=== PATIENT | male | born 1960 | race Caucasian/White ===

== ENCOUNTER 2020-12-14 16:07 | Inpatient (IN) | payer OTHER, SELFPAY ==
[2020-12-14] MEDS ORDERED: Senokot S 8.6-50 MG TAB PO PRN (20:32)
[2020-12-14] MEDS ORDERED: Ondansetron ODT 4 MG TAB PO PRN (20:32)
[2020-12-14] MEDS ORDERED: Ondansetron PF 4 MG/2 ML Vial IVP PRN (20:32)
[2020-12-14] MEDS ORDERED: Calcium Carbonate 500 MG ChewTAB PO PRN (20:32)
[2020-12-14] MEDS ORDERED: Melatonin 3 MG TAB PO PRN (20:55)
[2020-12-14 21:38] LABS: Band 7 % (5-11); Hemoglobin 6.3 g/dL (14.0-18.0); Hypochromia SLIGHT = 6-15 cells (100X) (0-5/hpf); Lymphocytes 9 % (21-51); MDiff Complete? YES; Mean Corpuscular HGB CONC 33.9 g/dL (32.0-36.0); Mean Corpuscular Hemoglobin 33.2 pg (27.0-31.0); Mean Corpuscular Volume 98.1 fL (78.0-98.0); Mean Platelet Volume 7.2 fL (7.4-10.4); Monocytes 1 % (0-10); Neutrophil 83 % (42-75); Platelet Count 109 thou/uL (130-400); Platelet Morphology Comment Appears Decreased; RBC Distribution Width 17.9 % (11.5-14.5); Red Blood Cell (RBC) Count 1.91 mill/uL (4.70-6.10); White Blood Cell (WBC) Count 2.4 thou/uL (4.8-10.8)
[2020-12-14 21:45] LABS: ALT (SGPT) 139 U/L (8-55); AST (SGOT) 75 U/L (5-34); Albumin 3.9 g/dL (3.4-4.8); Alkaline Phosphatase 334 U/L (40-110); Anion Gap 14 mmol/L (10-20); BUN (Urea Nitrogen) 21 mg/dL (8.4-25.7); Bilirubin, Total 0.9 mg/dL (0.2-1.2); CK (CPK) 41 U/L (30-200); Calc. Creatinine Clearance 37 mL/min (70-130); Carbon Dioxide 24 mmol/L (23-31); Chloride 97 mmol/L (98-107); Globulin 2.9 g/dL (2.4-3.5); Glucose 124 mg/dL (80-115); Potassium 5.4 mmol/L (3.5-5.1); Protein, Total 6.8 g/dL (5.8-8.1); Sodium 130 mmol/L (136-145)
[2020-12-14 21:57] LABS: Calcium 12.1 mg/dL (7.8-10.44)
[2020-12-14] MEDS: Lactated Ringer's 1,000 ML IV SCH (22:10)
[2020-12-14 22:44] LABS: Reticulocyte Count 0.6 % (0.5-1.5)
[2020-12-15] MEDS: Acetaminophen 325 MG TAB PO PRN ×3 (00:02→21:17)
[2020-12-15 04:58] LABS: #Lymphocytes 0.3 thou/uL (1.20-3.40); #Monocytes 0.1 thou/uL (0.11-0.59); #Neutrophils 1.5 thou/uL (1.40-6.50); %Basophils 1.3 % (0.0-1.0); %Eosinophils 0.2 % (0.0-10.0); %Lymphocytes 13.8 % (21.0-51.0); %Monocytes 4.7 % (0.0-10.0); Hemoglobin 6.2 g/dL (14.0-18.0); Mean Corpuscular HGB CONC 35.3 g/dL (32.0-36.0); Mean Corpuscular Hemoglobin 33.8 pg (27.0-31.0); Mean Corpuscular Volume 95.8 fL (78.0-98.0); Platelet Count 102 thou/uL (130-400); RBC Distribution Width 17.9 % (11.5-14.5); Red Blood Cell (RBC) Count 1.84 mill/uL (4.70-6.10); White Blood Cell (WBC) Count 1.9 thou/uL (4.8-10.8)
[2020-12-15 05:20] LABS: Chloride 96 mmol/L (98-107); Potassium 5.4 mmol/L (3.5-5.1); Sodium 130 mmol/L (136-145)
[2020-12-15 05:23] LABS: Albumin 3.4 g/dL (3.4-4.8)
[2020-12-15 05:25] LABS: Calcium 11.2 mg/dL (7.8-10.44)
[2020-12-15 05:26] LABS: Globulin 2.6 g/dL (2.4-3.5); Glucose 127 mg/dL (80-115)
[2020-12-15 05:27] LABS: Carbon Dioxide 24 mmol/L (23-31)
[2020-12-15 05:28] LABS: Alkaline Phosphatase 286 U/L (40-110); Bilirubin, Total 0.9 mg/dL (0.2-1.2)
[2020-12-15 05:29] LABS: Calc. Creatinine Clearance 35 mL/min (70-130)
[2020-12-15 05:30] LABS: BUN (Urea Nitrogen) 22 mg/dL (8.4-25.7)
[2020-12-15 05:31] LABS: AST (SGOT) 59 U/L (5-34)
[2020-12-15 05:32] LABS: ALT (SGPT) 113 U/L (8-55)
[2020-12-15 05:36] LABS: Anion Gap 15 mmol/L (10-20)
[2020-12-15 06:31] LABS: Ferritin 2116.19 ng/mL (22-322)
[2020-12-15] MEDS: Lactated Ringer's 1,000 ML IV SCH ×2 (07:00→15:48)
[2020-12-15 07:36] LABS: Hemoglobin 6.2 g/dL (14.0-18.0)
[2020-12-15] MEDS ORDERED: Dexamethasone 4 MG TAB PO SCH (08:00)
[2020-12-15] MEDS ORDERED: FLU VACC QS2021-22(6MOS UP)/PF 60 MCG/0.5 ML SYRINGE IM ONE (09:00)
[2020-12-15] MEDS ORDERED: Enoxaparin Sodium 40 MG/0.4 ML SYRINGE SC SCH (09:00)
[2020-12-15] MEDS ORDERED: Enoxaparin Sodium 30 MG/0.3 ML SYRINGE SC SCH (10:30)
[2020-12-15 11:06] LABS: SARS-CoV-2 NAA Rapid Test Not Detected (NotDetected)
[2020-12-15 12:16] LABS: INR-International Normal Ratio 1.4; PTT 46.4 sec (22.9-36.1); Prothrombin Time 16.9 sec (12.0-14.7)
[2020-12-15 14:51] LABS: FSP-Qualitative ABNORMAL (Normal)
[2020-12-15 14:52] LABS: FSP-Semiquantitative >=40 & <80 mcg/mL (Less than 5)
[2020-12-15 14:54] LABS: Anion Gap 16 mmol/L (10-20); BUN (Urea Nitrogen) 27 mg/dL (8.4-25.7); Calc. Creatinine Clearance 34 mL/min (70-130); Calcium 11.2 mg/dL (7.8-10.44); Carbon Dioxide 21 mmol/L (23-31); Chloride 96 mmol/L (98-107); Glucose 134 mg/dL (80-115); Potassium 4.7 mmol/L (3.5-5.1); Sodium 128 mmol/L (136-145)
[2020-12-15 14:58] LABS: Fibrinogen 681 mg/dL (253-463)
[2020-12-15 15:11] LABS: Bilirubin Negative (Negative); Blood, Urine 2+ (Negative); Clarity Clear (Clear); Glucose, Urine (Dipstick) Normal (Negative); Ketone, Urine Negative (Negative); Leukocyte Negative Leu/uL (Negative); Nitrite Negative (Negative); Protein, Urine (Dipstick) 100 mg/dL (Neg-Trace); RBC/HPF 0-3 HPF (0-3); Specific Gravity, Urine 1.013 (1.002-1.036); Squamous Epithelial 0-3 HPF (0-3); Urobilinogen Normal mg/dL (Less than 2); WBC/HPF 0-3 HPF (0-3)
[2020-12-15 15:15] LABS: Bacteria/HPF 1+ HPF (None Seen)
[2020-12-15] MEDS: Azithromycin 500 MG in Sodium Chloride 0.9% 250 ML 250 ML IVPB SCH (15:40)
[2020-12-15 16:11] LABS: Factor VIII Test 375.1 % ACTIVE (56-157)
[2020-12-15] MEDS ORDERED: cefTRIAXone\\ROCEPHIN 1 GM in Sodium Chloride 0.9% 100 ML IVPB SCH (17:00)
[2020-12-15 17:37] LABS: Hemoglobin 6.6 g/dL (14.0-18.0); Mean Corpuscular Hemoglobin 33.2 pg (27.0-31.0); Mean Corpuscular Volume 97.5 fL (78.0-98.0); Mean Platelet Volume 7.6 fL (7.4-10.4); Platelet Count 117 thou/uL (130-400); RBC Distribution Width 18.1 % (11.5-14.5); White Blood Cell (WBC) Count 2.5 thou/uL (4.8-10.8)
[2020-12-15 17:50] LABS: ALT (SGPT) 117 U/L (8-55); AST (SGOT) 70 U/L (5-34); Albumin 3.7 g/dL (3.4-4.8); Alkaline Phosphatase 301 U/L (40-110); Bilirubin, Direct 0.7 mg/dL (0.1-0.3); Protein, Total 7.3 g/dL (5.8-8.1)
[2020-12-15] MEDS ORDERED: Dexamethasone 4 mg/ml Vial SLOW IVP SCH (18:00)
[2020-12-15 18:01] LABS: Band 41 % (5-11); Lymphocytes 13 % (21-51); MDiff Complete? YES; Monocytes 3 % (0-10); Neutrophil 41 % (42-75); Platelet Morphology Comment Appears Decreased; Polychromasia SLIGHT = 2-3 cells (100X) (0-2/hpf); Reactive Lymphocytes 1 % (0-10)
[2020-12-15 18:23] LABS: Complement-C4 54.5 mg/dL (15-53)
[2020-12-15 18:25] LABS: Sodium, Urine Less than 20 mmol/L (Not Available)
[2020-12-15 18:44] LABS: HBSAg Index 0.22 S/CO (0-0.99); Hep B Surf Ag Non-Reactive S/CO (NonReactive)
[2020-12-15 18:45] LABS: Hep A IgM AB Non-Reactive (NonReactive); Hep A IgM S/CO 0.07 S/CO (0-0.79); Hep C IgG Ab Non-Reactive (NonReactive); Hep C Index 0.02 S/CO (0-0.79)
[2020-12-15 18:46] LABS: HBCM Index 0.05 S/CO (0-0.79); Hepatitis B Core IgM Abs Non-Reactive (NonReactive)
[2020-12-15 18:53] LABS: Protein, Urine Random Quant 466 mg/dL (1-14)
[2020-12-15] MEDS ORDERED: Piperacillin/Tazobactam 3.375 GM in Sodium Chloride 0.9% 100 ML IVPB SCH (20:00)
[2020-12-15 20:03] LABS: SARS-CoV-2 IgG Ab Non-Reactive (NonReactive)
[2020-12-15 20:16] LABS: SARS-CoV-2 IgG Index 0.02 S/CO (< 1.40)
[2020-12-16] MEDS: Lactated Ringer's 1,000 ML IV SCH (01:00)
[2020-12-16] MEDS ORDERED: Piperacillin/Tazobactam 3.375 GM in Sodium Chloride 0.9% 100 ML IVPB SCH (04:00)
[2020-12-16] MEDS ORDERED: Sodium Bicarbonate 150 MEQ in Dextrose 5% in Water 1,000 ML IV SCH (05:45)
[2020-12-16] MEDS ORDERED: Furosemide 40 MG/4 ML VIAL SLOW IVP SCH (06:00)
[2020-12-16 06:47] LABS: #Lymphocytes 0.3 thou/uL (1.20-3.40); #Monocytes 0.1 thou/uL (0.11-0.59); #Neutrophils 1.6 thou/uL (1.40-6.50); %Basophils 0.4 % (0.0-1.0); %Eosinophils 0.3 % (0.0-10.0); %Lymphocytes 13.5 % (21.0-51.0); %Monocytes 5.2 % (0.0-10.0); %Neutrophils 80.7 % (42.0-75.0); Hemoglobin 7.1 g/dL (14.0-18.0); Mean Corpuscular HGB CONC 33.1 g/dL (32.0-36.0); Mean Corpuscular Hemoglobin 31.9 pg (27.0-31.0); Mean Corpuscular Volume 96.5 fL (78.0-98.0); Mean Platelet Volume 7.6 fL (7.4-10.4); Platelet Count 95 thou/uL (130-400); RBC Distribution Width 18.2 % (11.5-14.5); Red Blood Cell (RBC) Count 2.23 mill/uL (4.70-6.10); White Blood Cell (WBC) Count 1.9 thou/uL (4.8-10.8)
[2020-12-16 07:20] LABS: Albumin 3.5 g/dL (3.4-4.8)
[2020-12-16 07:22] LABS: Chloride 100 mmol/L (98-107); Potassium 5.2 mmol/L (3.5-5.1); Sodium 134 mmol/L (136-145)
[2020-12-16 07:23] LABS: Glucose 171 mg/dL (80-115); Protein, Total 6.5 g/dL (5.8-8.1)
[2020-12-16 07:24] LABS: Carbon Dioxide 21 mmol/L (23-31)
[2020-12-16 07:25] LABS: Bilirubin, Total 1.2 mg/dL (0.2-1.2)
[2020-12-16 07:26] LABS: Alkaline Phosphatase 326 U/L (40-110); Calc. Creatinine Clearance 36 mL/min (70-130)
[2020-12-16 07:27] LABS: BUN (Urea Nitrogen) 31 mg/dL (8.4-25.7)
[2020-12-16 07:28] LABS: AST (SGOT) 90 U/L (5-34)
[2020-12-16 07:29] LABS: ALT (SGPT) 119 U/L (8-55)
[2020-12-16 07:34] LABS: Anion Gap 18 mmol/L (10-20)
[2020-12-16 07:34] LABS: Hemoglobin 6.7 g/dL (14.0-18.0)
[2020-12-16 07:35] LABS: Reticulocyte Count 0.4 % (0.5-1.5)
[2020-12-16 07:46] LABS: INR-International Normal Ratio 1.4; PTT 44.4 sec (22.9-36.1); Prothrombin Time 16.9 sec (12.0-14.7)
[2020-12-16] MEDS ORDERED: Lidocaine 1% PF 5 ML VIAL ONE (08:47)
[2020-12-16] MEDS ORDERED: PROPOFOL 200 MG/20 ML VIAL ONE (08:47)
[2020-12-16] MEDS ORDERED: Promethazine HCl 25 MG/ML VIAL IVPB PRN (09:05)
[2020-12-16] MEDS ORDERED: Ondansetron HCl/PF 4 MG/2 ML Vial IVP PRN (09:05)
[2020-12-16] MEDS ORDERED: Promethazine HCl 25 MG/ML VIAL IM PRN (09:05)
[2020-12-16] MEDS: Enoxaparin Sodium 30 MG/0.3 ML SYRINGE SC SCH (10:21)
[2020-12-16] MEDS ORDERED: cefTRIAXone Sodium 2 MG in Syringe 0 ML IVPB SCH (10:30)
[2020-12-16 11:16] LABS: HIV (1/2) Antibody/Antigen Non-Reactive (NonReactive); HIV 1/2 INDEX 0.06 S/CO (<1.00)
[2020-12-16] MEDS: cefTRIAXone\\ROCEPHIN 2 GM in Sodium Chloride 0.9% 100 ML IVPB SCH (15:34)
[2020-12-16] MEDS: Azithromycin 500 MG in Sodium Chloride 0.9% 250 ML 250 ML IVPB SCH (15:35)
[2020-12-16 16:07] LABS: T4 5.8 ug/dL (4.87-11.72); Thyroid Stimulating Hormone 0.9819 uIU/mL (0.35-4.94)
[2020-12-16] MEDS: Pantoprazole 40 MG VIAL IVP SCH (16:47)
[2020-12-16 19:23] LABS: Anion Gap 17 mmol/L (10-20); BUN (Urea Nitrogen) 42 mg/dL (8.4-25.7); Calc. Creatinine Clearance 36 mL/min (70-130); Calcium 10.4 mg/dL (7.8-10.44); Carbon Dioxide 21 mmol/L (23-31); Chloride 100 mmol/L (98-107); Glucose 142 mg/dL (80-115); Potassium 4.5 mmol/L (3.5-5.1); Sodium 133 mmol/L (136-145)
[2020-12-16 19:37] LABS: A/G Ratio 0.8 (0.7-1.7); Albumin 2.8 g/dL (2.9-4.4); Alpha 1 0.5 g/dL (0.0-0.4); Alpha 2 1.3 g/dL (0.4-1.0); Beta 0.9 g/dL (0.7-1.3); Globulin, Total 3.7 g/dL (2.2-3.9); M-Spike Note: g/dL (Not Observed)
[2020-12-17 01:34] LABS: Platelet Count 76 thou/uL (130-400)
[2020-12-17 07:54] LABS: 24 Hr Creatinine 1748.24 mg/24 hr (950-2490); Creatinine, Urine 82.27 mg/dL (63-166)
[2020-12-17] MEDS: Enoxaparin Sodium 30 MG/0.3 ML SYRINGE SC SCH ×2 (08:52→10:06)
[2020-12-17] MEDS: Pantoprazole 40 MG VIAL IVP SCH ×2 (08:53→13:20)
[2020-12-17 08:58] LABS: Reticulocyte Count 0.4 % (0.5-1.5)
[2020-12-17 09:12] LABS: INR-International Normal Ratio 1.3; Prothrombin Time 16.7 sec (12.0-14.7)
[2020-12-17 09:13] LABS: PTT 44.2 sec (22.9-36.1)
[2020-12-17 09:19] LABS: Albumin 3.7 g/dL (3.4-4.8)
[2020-12-17 09:20] LABS: Chloride 101 mmol/L (98-107); Potassium 4.3 mmol/L (3.5-5.1); Sodium 137 mmol/L (136-145)
[2020-12-17 09:21] LABS: Calcium 10.5 mg/dL (7.8-10.44); Glucose 133 mg/dL (80-115); Protein, Total 6.7 g/dL (5.8-8.1)
[2020-12-17 09:23] LABS: Bilirubin, Total 1.3 mg/dL (0.2-1.2); Carbon Dioxide 25 mmol/L (23-31)
[2020-12-17 09:24] LABS: #Lymphocytes 0.3 thou/uL (1.20-3.40); #Monocytes 0.1 thou/uL (0.11-0.59); #Neutrophils 1.7 thou/uL (1.40-6.50); %Eosinophils 0.3 % (0.0-10.0); %Lymphocytes 14.7 % (21.0-51.0); %Monocytes 2.2 % (0.0-10.0); %Neutrophils 82.7 % (42.0-75.0); Alkaline Phosphatase 401 U/L (40-110); Anisocytosis SLIGHT = 6-15 cells (100X) (0-5/hpf); Hemoglobin 8.3 g/dL (14.0-18.0); MDiff Complete? YES; Mean Corpuscular HGB CONC 33.7 g/dL (32.0-36.0); Mean Corpuscular Hemoglobin 31.8 pg (27.0-31.0); Mean Corpuscular Volume 94.6 fL (78.0-98.0); Mean Platelet Volume 7.9 fL (7.4-10.4); Platelet Count 103 thou/uL (130-400); Platelet Morphology Comment Appears Decreased; RBC Distribution Width 17.8 % (11.5-14.5); Red Blood Cell (RBC) Count 2.61 mill/uL (4.70-6.10); White Blood Cell (WBC) Count 2.1 thou/uL (4.8-10.8)
[2020-12-17 09:25] LABS: BUN (Urea Nitrogen) 43 mg/dL (8.4-25.7); Calc. Creatinine Clearance 32 mL/min (70-130)
[2020-12-17 09:26] LABS: AST (SGOT) 205 U/L (5-34)
[2020-12-17 09:27] LABS: ALT (SGPT) 191 U/L (8-55)
[2020-12-17 09:28] LABS: Anion Gap 15 mmol/L (10-20)
[2020-12-17] MEDS: cefTRIAXone\\ROCEPHIN 2 GM in Sodium Chloride 0.9% 100 ML IVPB SCH (15:30)
[2020-12-17 17:13] LABS: Kappa Light Chains Note: mg/L (3.3-19.4)
[2020-12-17] MEDS ORDERED: Furosemide 20 MG/2 ML VIAL SLOW IVP SCH (17:45)
[2020-12-17] MEDS: Melatonin 3 MG TAB PO PRN (22:07)
[2020-12-18 05:39] LABS: Reticulocyte Count 0.4 % (0.5-1.5)
[2020-12-18 05:49] LABS: INR-International Normal Ratio 1.3; Prothrombin Time 16.3 sec (12.0-14.7)
[2020-12-18 05:50] LABS: PTT 45.2 sec (22.9-36.1)
[2020-12-18 06:04] LABS: Albumin 3.2 g/dL (3.4-4.8)
[2020-12-18 06:05] LABS: #Lymphocytes 0.3 thou/uL (1.20-3.40); #Monocytes 0.1 thou/uL (0.11-0.59); #Neutrophils 1.3 thou/uL (1.40-6.50); %Eosinophils 0.9 % (0.0-10.0); %Lymphocytes 14.9 % (21.0-51.0); %Monocytes 7.9 % (0.0-10.0); %Neutrophils 76.3 % (42.0-75.0); Chloride 102 mmol/L (98-107); Hemoglobin 7.5 g/dL (14.0-18.0); Mean Corpuscular Hemoglobin 31.5 pg (27.0-31.0); Mean Corpuscular Volume 95.4 fL (78.0-98.0); Mean Platelet Volume 7.8 fL (7.4-10.4); Platelet Count 103 thou/uL (130-400); Potassium 4.1 mmol/L (3.5-5.1); RBC Distribution Width 17.8 % (11.5-14.5); Red Blood Cell (RBC) Count 2.38 mill/uL (4.70-6.10); Sodium 137 mmol/L (136-145); White Blood Cell (WBC) Count 1.7 thou/uL (4.8-10.8)
[2020-12-18 06:06] LABS: Calcium 10.3 mg/dL (7.8-10.44)
[2020-12-18 06:07] LABS: Globulin 2.8 g/dL (2.4-3.5); Glucose 126 mg/dL (80-115); Triglycerides 90 mg/dL (Less than 150)
[2020-12-18 06:08] LABS: Carbon Dioxide 25 mmol/L (23-31)
[2020-12-18 06:09] LABS: Bilirubin, Total 1.1 mg/dL (0.2-1.2)
[2020-12-18 06:10] LABS: Alkaline Phosphatase 430 U/L (40-110); Calc. Creatinine Clearance 33 mL/min (70-130)
[2020-12-18 06:11] LABS: BUN (Urea Nitrogen) 48 mg/dL (8.4-25.7)
[2020-12-18 06:12] LABS: AST (SGOT) 221 U/L (5-34); Cardiac Risk 4.2 (Less than 4.5); Cholesterol 80 mg/dl (< 200 Desired); HDL Cholesterol 19 mg/dL (>60 Neg Risk); Iron Binding Capacity, Total 174 mcg/dL (261-462); LDL Cholesterol, Calculated 43 mg/dL
[2020-12-18 06:13] LABS: ALT (SGPT) 230 U/L (8-55); Iron 47 ug/dL (65-175)
[2020-12-18 06:56] LABS: Anion Gap 14 mmol/L (10-20)
[2020-12-18] MEDS: Enoxaparin Sodium 30 MG/0.3 ML SYRINGE SC SCH (08:55)
[2020-12-18] MEDS: Pantoprazole 40 MG VIAL IVP SCH (08:56)
[2020-12-18] MEDS ORDERED: Furosemide 20 MG/2 ML VIAL SLOW IVP SCH (10:30)
[2020-12-18] MEDS ORDERED: Magnesium Citrate 300 ML BOT PO SCH (12:00)
[2020-12-18] MEDS: cefTRIAXone\\ROCEPHIN 2 GM in Sodium Chloride 0.9% 100 ML IVPB SCH (15:16)
[2020-12-18 15:54] LABS: ANA Symphony (Qualitative) Negative (Negative); ANA Symphony (Quantitative) 0.1 Ratio (< 0.7 Negative); EliA Vaculitis New Method **** NEW METHOD ****; Mitochondrial Ab Less than 0.5 U/mL (<4 Negative); dsDNA IgG Antibody Less than 0.5 IU/mL (<10 Negative)
[2020-12-19 05:20] LABS: Reticulocyte Count 0.4 % (0.5-1.5)
[2020-12-19 05:34] LABS: #Lymphocytes 0.3 thou/uL (1.20-3.40); #Monocytes 0.1 thou/uL (0.11-0.59); #Neutrophils 1.3 thou/uL (1.40-6.50); %Basophils 0.6 % (0.0-1.0); %Lymphocytes 18.4 % (21.0-51.0); %Monocytes 6.9 % (0.0-10.0); %Neutrophils 73.2 % (42.0-75.0); Hemoglobin 7.8 g/dL (14.0-18.0); Mean Corpuscular HGB CONC 35.6 g/dL (32.0-36.0); Mean Corpuscular Volume 95.4 fL (78.0-98.0); Mean Platelet Volume 7.9 fL (7.4-10.4); Platelet Count 102 thou/uL (130-400); RBC Distribution Width 17.4 % (11.5-14.5); Red Blood Cell (RBC) Count 2.31 mill/uL (4.70-6.10); White Blood Cell (WBC) Count 1.8 thou/uL (4.8-10.8)
[2020-12-19 05:39] LABS: INR-International Normal Ratio 1.3; Prothrombin Time 16.4 sec (12.0-14.7)
[2020-12-19 05:40] LABS: PTT 49.7 sec (22.9-36.1)
[2020-12-19 05:44] LABS: ALT (SGPT) 248 U/L (8-55); AST (SGOT) 190 U/L (5-34); Albumin 3.4 g/dL (3.4-4.8); Alkaline Phosphatase 496 U/L (40-110); Anion Gap 14 mmol/L (10-20); BUN (Urea Nitrogen) 43 mg/dL (8.4-25.7); Bilirubin, Total 1.1 mg/dL (0.2-1.2); Calc. Creatinine Clearance 36 mL/min (70-130); Calcium 10.4 mg/dL (7.8-10.44); Carbon Dioxide 25 mmol/L (23-31); Chloride 104 mmol/L (98-107); Globulin 2.8 g/dL (2.4-3.5); Glucose 114 mg/dL (80-115); Potassium 3.9 mmol/L (3.5-5.1); Protein, Total 6.2 g/dL (5.8-8.1); Sodium 139 mmol/L (136-145)
[2020-12-19] MEDS: Enoxaparin Sodium 30 MG/0.3 ML SYRINGE SC SCH (08:10)
[2020-12-19] MEDS: Pantoprazole 40 MG VIAL IVP SCH (08:49)
[2020-12-19] MEDS ORDERED: Sodium Bicarbonate 2.5 MEQ/5 ML VIAL ONE ×3 (10:54→11:42)
[2020-12-19] MEDS: cefTRIAXone\\ROCEPHIN 2 GM in Sodium Chloride 0.9% 100 ML IVPB SCH (15:10)
[2020-12-19 16:14] LABS: Albumin, PEP 24hr Ur 14.2 % (NOT ESTAB.); Alpha-1-Globulin, PEP 24h Ur 1.2 % (NOT ESTAB.); Alpha-2-Globulin, PEP 24h Ur 2.6 % (NOT ESTAB.); Beta Globulin, PEP 24h Ur 6.5 % (NOT ESTAB.); Gamma Globulin, PEP 24h Ur 75.5 % (NOT ESTAB.); M-Spike, mg/24hr PEP Ur 14620.7 mg/24 hr (Not Observed); M-Spike,% PEP 24hr Ur 72.8 % (Not Observed); Protein, Urine 945.1 mg/dL (Not Estab.)
[2020-12-19] MEDS ORDERED: Preparation H HC 1% Cream 26 GM TUBE TOP PRN (17:20)
[2020-12-19] MEDS ORDERED: Preparation H Ointment 28 GM TUBE TOP PRN (17:24)
[2020-12-20 05:07] LABS: Reticulocyte Count 0.6 % (0.5-1.5)
[2020-12-20 05:16] LABS: INR-International Normal Ratio 1.2; PTT 45.8 sec (22.9-36.1); Prothrombin Time 15.4 sec (12.0-14.7)
[2020-12-20 05:21] LABS: Hemoglobin 7.3 g/dL (14.0-18.0); Mean Corpuscular HGB CONC 32.1 g/dL (32.0-36.0); Mean Corpuscular Hemoglobin 30.9 pg (27.0-31.0); Mean Corpuscular Volume 96.4 fL (78.0-98.0); Mean Platelet Volume 7.7 fL (7.4-10.4); Platelet Count 105 thou/uL (130-400); RBC Distribution Width 17.5 % (11.5-14.5); Red Blood Cell (RBC) Count 2.37 mill/uL (4.70-6.10); White Blood Cell (WBC) Count 1.3 thou/uL (4.8-10.8)
[2020-12-20 05:36] LABS: Albumin 3.2 g/dL (3.4-4.8)
[2020-12-20 05:38] LABS: Calcium 10.3 mg/dL (7.8-10.44); Chloride 105 mmol/L (98-107); Potassium 4.1 mmol/L (3.5-5.1); Sodium 139 mmol/L (136-145)
[2020-12-20 05:39] LABS: Globulin 2.8 g/dL (2.4-3.5); Glucose 117 mg/dL (80-115)
[2020-12-20 05:40] LABS: Carbon Dioxide 23 mmol/L (23-31)
[2020-12-20 05:41] LABS: Bilirubin, Total 1.1 mg/dL (0.2-1.2)
[2020-12-20 05:42] LABS: Alkaline Phosphatase 555 U/L (40-110); Calc. Creatinine Clearance 41 mL/min (70-130)
[2020-12-20 05:43] LABS: BUN (Urea Nitrogen) 35 mg/dL (8.4-25.7)
[2020-12-20 05:44] LABS: AST (SGOT) 130 U/L (5-34)
[2020-12-20 05:45] LABS: ALT (SGPT) 202 U/L (8-55)
[2020-12-20 05:50] LABS: Band 16 % (5-11); Eosinophils 1 % (0-10); Lymphocytes 22 % (21-51); MDiff Complete? YES; Monocytes 3 % (0-10); Neutrophil 58 % (42-75); Platelet Morphology Comment Appears Decreased
[2020-12-20 06:58] LABS: Anion Gap 15 mmol/L (10-20)
[2020-12-20] MEDS: Enoxaparin Sodium 30 MG/0.3 ML SYRINGE SC SCH ×2 (08:08→10:16)
[2020-12-20] MEDS: Torsemide 20 MG TAB PO SCH ×2 (08:11→10:17)
[2020-12-20] MEDS: Pantoprazole 40 MG VIAL IVP SCH (08:11)
[2020-12-20] MEDS ORDERED: Torsemide 20 MG TAB PO SCH ×2 (09:00→18:00)
[2020-12-20] MEDS ORDERED: Spironolactone 25 MG TAB PO SCH (09:15)
[2020-12-20 13:39] LABS: IFE-Serum Interpretation Note: (.); IgA - Total IgA (Sendout) 6 mg/dL (61-437); Immunoglobulin - G (Sendout) 684 mg/dL (603-1613); Immunoglobulin - M (Sendout) 14 mg/dL (20-172)
[2020-12-20] MEDS: Dexamethasone 10 MG/ML VIAL SLOW IVP SCH (13:39)
[2020-12-20] MEDS: cefTRIAXone\\ROCEPHIN 2 GM in Sodium Chloride 0.9% 100 ML IVPB SCH (16:44)
[2020-12-21 05:12] LABS: INR-International Normal Ratio 1.2; PTT 47.2 sec (22.9-36.1); Prothrombin Time 15.1 sec (12.0-14.7)
[2020-12-21 05:16] LABS: #Lymphocytes 0.4 thou/uL (1.20-3.40); #Neutrophils 1.7 thou/uL (1.40-6.50); %Eosinophils 0.4 % (0.0-10.0); %Lymphocytes 20.6 % (21.0-51.0); %Monocytes 1.4 % (0.0-10.0); %Neutrophils 77.6 % (42.0-75.0); Hemoglobin 8.3 g/dL (14.0-18.0); Mean Corpuscular Hemoglobin 30.6 pg (27.0-31.0); Mean Corpuscular Volume 95.6 fL (78.0-98.0); Mean Platelet Volume 7.8 fL (7.4-10.4); Platelet Count 142 thou/uL (130-400); RBC Distribution Width 17.1 % (11.5-14.5); White Blood Cell (WBC) Count 2.1 thou/uL (4.8-10.8)
[2020-12-21 05:23] LABS: ALT (SGPT) 185 U/L (8-55); AST (SGOT) 93 U/L (5-34); Albumin 3.5 g/dL (3.4-4.8); Alkaline Phosphatase 589 U/L (40-110); Anion Gap 19 mmol/L (10-20); BUN (Urea Nitrogen) 45 mg/dL (8.4-25.7); Calc. Creatinine Clearance 35 mL/min (70-130); Calcium 9.5 mg/dL (7.8-10.44); Carbon Dioxide 23 mmol/L (23-31); Chloride 100 mmol/L (98-107); Globulin 3.1 g/dL (2.4-3.5); Glucose 165 mg/dL (80-115); Potassium 3.9 mmol/L (3.5-5.1); Protein, Total 6.6 g/dL (5.8-8.1); Sodium 138 mmol/L (136-145)
[2020-12-21 05:26] LABS: Reticulocyte Count 0.8 % (0.5-1.5)
[2020-12-21] MEDS: Pantoprazole 40 MG VIAL IVP SCH (09:10)
[2020-12-21] MEDS: Enoxaparin Sodium 30 MG/0.3 ML SYRINGE SC SCH (09:10)
[2020-12-21 14:14] LABS: Cytoplasmic (C-ANCA) <1:20 titer (Neg:<1:20); Myeloperoxidase AutoAbs <9.0 U/mL (0.0-9.0); Perinuclear (P-ANCA) <1:20 titer (Neg:<1:20); Proteinase-3 AutoAbs Less than 3.5 U/mL (0.0-3.5)
[2020-12-21] MEDS: Dexamethasone 10 MG/ML VIAL SLOW IVP SCH (16:58)
[2020-12-22] MEDS: Melatonin 3 MG TAB PO PRN ×2 (01:13→21:39)
[2020-12-22] MEDS: Acetaminophen 325 MG TAB PO PRN (01:13)
[2020-12-22 04:03] LABS: #Lymphocytes 0.5 thou/uL (1.20-3.40); #Neutrophils 1.7 thou/uL (1.40-6.50); %Basophils 0.2 % (0.0-1.0); %Eosinophils 0.2 % (0.0-10.0); %Lymphocytes 21.1 % (21.0-51.0); %Monocytes 0.5 % (0.0-10.0); Hemoglobin 8.7 g/dL (14.0-18.0); Mean Corpuscular HGB CONC 34.1 g/dL (32.0-36.0); Mean Corpuscular Volume 93.8 fL (78.0-98.0); Mean Platelet Volume 7.3 fL (7.4-10.4); Platelet Count 146 thou/uL (130-400); RBC Distribution Width 17.1 % (11.5-14.5); Red Blood Cell (RBC) Count 2.72 mill/uL (4.70-6.10); White Blood Cell (WBC) Count 2.2 thou/uL (4.8-10.8)
[2020-12-22 04:04] LABS: Reticulocyte Count 0.7 % (0.5-1.5)
[2020-12-22 04:37] LABS: Anion Gap 18 mmol/L (10-20); BUN (Urea Nitrogen) 61 mg/dL (8.4-25.7); Calc. Creatinine Clearance 39 mL/min (70-130); Carbon Dioxide 24 mmol/L (23-31); Chloride 99 mmol/L (98-107); Potassium 5.3 mmol/L (3.5-5.1); Sodium 136 mmol/L (136-145)
[2020-12-22 04:38] LABS: ALT (SGPT) 201 U/L (8-55); AST (SGOT) 122 U/L (5-34); Albumin 3.5 g/dL (3.4-4.8); Alkaline Phosphatase 572 U/L (40-110); Bilirubin, Total 0.9 mg/dL (0.2-1.2); Calcium 8.8 mg/dL (7.8-10.44); Globulin 2.8 g/dL (2.4-3.5); Glucose 171 mg/dL (80-115); Protein, Total 6.3 g/dL (5.8-8.1)
[2020-12-22] MEDS ORDERED: BORTEZOMIB SC SCH (07:00)
[2020-12-22] MEDS ORDERED: CYCLOPHOSPHAMIDE IVPB SCH (07:00)
[2020-12-22] MEDS ORDERED: SODIUM CHLORIDE 0.9% IVPB SCH (07:00)
[2020-12-22] MEDS ORDERED: ADMIXTURE FEE CHEMO SC SCH (07:00)
[2020-12-22 07:16] LABS: Kappa/Lambda Ratio <0.05 (1.03-31.76)
[2020-12-22] MEDS ORDERED: Ondansetron HCl/PF 10 MG in Sodium Chloride 0.9% 50 ML IVPB SCH (08:00)
[2020-12-22] MEDS ORDERED: Bortezomib 3.5 MG SDV VIAL SC SCH (08:00)
[2020-12-22] MEDS: Febuxostat 40 MG TAB PO SCH (09:34)
[2020-12-22] MEDS: Enoxaparin Sodium 30 MG/0.3 ML SYRINGE SC SCH (09:34)
[2020-12-22] MEDS ORDERED: Torsemide 20 MG TAB PO SCH (15:30)
[2020-12-23 01:05] LABS: SARS-CoV-2 PCR by NAA Not Detected (NotDetected)
[2020-12-23 04:06] LABS: #Lymphocytes 0.7 thou/uL (1.20-3.40); #Monocytes 0.1 thou/uL (0.11-0.59); #Neutrophils 1.4 thou/uL (1.40-6.50); %Basophils 0.1 % (0.0-1.0); %Eosinophils 0.7 % (0.0-10.0); %Monocytes 5.1 % (0.0-10.0); %Neutrophils 62.1 % (42.0-75.0); Hemoglobin 8.7 g/dL (14.0-18.0); Mean Corpuscular Hemoglobin 31.2 pg (27.0-31.0); Mean Corpuscular Volume 94.7 fL (78.0-98.0); Mean Platelet Volume 7.3 fL (7.4-10.4); Platelet Count 153 thou/uL (130-400); Red Blood Cell (RBC) Count 2.78 mill/uL (4.70-6.10); White Blood Cell (WBC) Count 2.2 thou/uL (4.8-10.8)
[2020-12-23 04:18] LABS: Reticulocyte Count 0.8 % (0.5-1.5)
[2020-12-23 04:46] LABS: ALT (SGPT) 222 U/L (8-55); AST (SGOT) 139 U/L (5-34); Albumin 3.3 g/dL (3.4-4.8); Alkaline Phosphatase 513 U/L (40-110); Anion Gap 17 mmol/L (10-20); BUN (Urea Nitrogen) 68 mg/dL (8.4-25.7); Calc. Creatinine Clearance 34 mL/min (70-130); Calcium 8.2 mg/dL (7.8-10.44); Carbon Dioxide 23 mmol/L (23-31); Chloride 100 mmol/L (98-107); Globulin 2.7 g/dL (2.4-3.5); Glucose 102 mg/dL (80-115); Potassium 3.7 mmol/L (3.5-5.1); Sodium 136 mmol/L (136-145)
[2020-12-23 06:15] VITALS: BMI 27.2
[2020-12-23] MEDS ORDERED: ADMIXTURE FEE CHEMO SC SCH (06:30)
[2020-12-23] MEDS ORDERED: BORTEZOMIB SC SCH (06:30)
[2020-12-23] MEDS ORDERED: CYCLOPHOSPHAMIDE IVPB SCH (06:30)
[2020-12-23] MEDS ORDERED: Ondansetron HCl/PF 10 MG in Sodium Chloride 0.9% 50 ML IVPB SCH (06:30)
[2020-12-23] MEDS ORDERED: SODIUM CHLORIDE 0.9% IVPB SCH (06:30)
[2020-12-23] MEDS: Febuxostat 40 MG TAB PO SCH (09:19)
[2020-12-23] MEDS: Enoxaparin Sodium 30 MG/0.3 ML SYRINGE SC SCH (09:19)
[2020-12-23] MEDS ORDERED: predniSONE 20 MG TAB PO SCH (11:00)
[2020-12-23 15:28] VITALS: BP 132/64; TEMP 98
[2020-12-27 16:01] LABS: M-Spike,% 85.4
== END 2020-12-23 15:40 | disposition home or self-care (01) | DRG 840 ==
LOC: 2NO 16:07 → ONC 12-21 13:31
PROVIDERS: ADMIT Family Medicine; ATTEND Family Medicine
PROC: 30233N1 Transfusion of Nonautologous Red Blood Cells into Peripheral Vein, Percutaneous Approach (ICD-10-PCS; 2020-12-15)
PROC: B24BZZ4 Ultrasonography of Heart with Aorta, Transesophageal (ICD-10-PCS; 2020-12-16)
PROC: 0TB03ZX Excision of Right Kidney, Percutaneous Approach, Diagnostic (ICD-10-PCS; principal; 2020-12-20)
PROC: 07DR3ZX Extraction of Iliac Bone Marrow, Percutaneous Approach, Diagnostic (ICD-10-PCS; 2020-12-20)
PROC: 3E03305 Introduction of Other Antineoplastic into Peripheral Vein, Percutaneous Approach (ICD-10-PCS; 2020-12-22)
DX: C90.00 Multiple myeloma not having achieved remission (principal); A41.9 Sepsis, unspecified organism; J18.9 Pneumonia, unspecified organism; J96.01 Acute respiratory failure with hypoxia; D61.818 Other pancytopenia; N17.9 Acute kidney failure, unspecified; E87.1 Hypo-osmolality and hyponatremia; D58.9 Hereditary hemolytic anemia, unspecified; D68.9 Coagulation defect, unspecified; E87.2 Acidosis; F17.290 Nicotine dependence, other tobacco product, uncomplicated; D64.9 Anemia, unspecified; R74.01 Elevation of levels of liver transaminase levels; R74.8 Abnormal levels of other serum enzymes; G47.00 Insomnia, unspecified; E83.52 Hypercalcemia; K59.00 Constipation, unspecified; R79.89 Other specified abnormal findings of blood chemistry; R16.0 Hepatomegaly, not elsewhere classified; I27.20 Pulmonary hypertension, unspecified; K76.1 Chronic passive congestion of liver; E88.09 Other disorders of plasma-protein metabolism, not elsewhere classified; I07.1 Rheumatic tricuspid insufficiency; R31.29 Other microscopic hematuria; E87.5 Hyperkalemia; Z85.038 Personal history of other malignant neoplasm of large intestine; Z90.49 Acquired absence of other specified parts of digestive tract
CPT/HCPCS: 20225; 36415; 36430; 50200; 71250; 76705; 76770; 77012; 80053; 80061; 80074; 81001; 82103; 82104; 82105; 82306; 82378; 82390; 82550; 82570; 82607; 82728; 82746; 83516; 83520; 83540; 83550; 83615; 83883; 83970; 84145; 84156; 84165; 84166; 84300; 84403; 84436; 84443; 84540; 85025; 85046; 85060; 85240; 85362; 85379; 85384; 85610; 85730; 86038; 86160; 86225; 86256; 86334; 86335; 86769; 86850; 86900; 86901; 87040; 87086; 87389; 88184; 88237; 88305; 88329; 93306; 93312; C9113; J0456; J0696; J1100; J1650; J1940; J2405; J2543; J2704; J3490; J7050; J7070; J7120; J7512; J9041; J9070; P9016; U0002; U0003; U0005

== ENCOUNTER 2021-01-04 10:48 | Outpatient (CLI) | payer OTHER, SELFPAY ==
[2021-01-04 23:48] LABS: SARS-CoV-2 PCR by NAA Not Detected (NotDetected)
== END 2021-01-04 10:49 | disposition home or self-care (01) ==
LOC: LABBT 10:48
PROVIDERS: ATTEND Internal Medicine Hematology & Oncology
DX: Z01.812 Encounter for preprocedural laboratory examination (principal); C79.51 Secondary malignant neoplasm of bone; C90.00 Multiple myeloma not having achieved remission; Z20.822 Contact with and (suspected) exposure to COVID-19
CPT/HCPCS: U0003; U0005

== ENCOUNTER 2021-01-06 07:36 | Outpatient (CLI) | payer OTHER | END 2021-01-06 07:37 | disposition home or self-care (01) | LOC: PET 07:36 | PROVIDERS: ATTEND Internal Medicine Hematology & Oncology | DX: C90.00 Multiple myeloma not having achieved remission (principal); C79.51 Secondary malignant neoplasm of bone | CPT/HCPCS: 78816; A9552 ==

== ENCOUNTER 2021-01-09 08:49 | Day surgery (SDC) | payer OTHER ==
[2021-01-05 13:55] VITALS: BMI 28.1
[2021-01-09 09:58] VITALS: BP 118/66; TEMP 97.4
== END 2021-01-09 12:30 | disposition home or self-care (01) ==
LOC: CT 08:49
PROVIDERS: ATTEND Internal Medicine Hematology & Oncology
PROC: 07DR3ZX Extraction of Iliac Bone Marrow, Percutaneous Approach, Diagnostic (ICD-10-PCS; principal; 2021-01-09)
PROC: 079T3ZX Drainage of Bone Marrow, Percutaneous Approach, Diagnostic (ICD-10-PCS; principal; 2021-01-09)
DX: C90.00 Multiple myeloma not having achieved remission (principal); C79.51 Secondary malignant neoplasm of bone; F17.210 Nicotine dependence, cigarettes, uncomplicated; Z85.038 Personal history of other malignant neoplasm of large intestine; Z79.899 Other long term (current) drug therapy; Z90.49 Acquired absence of other specified parts of digestive tract
CPT/HCPCS: 20225; 77012; 88184; 88237

== ENCOUNTER 2021-01-10 10:38 | Day surgery (SDC) | payer OTHER ==
[~2021-01-10 10:38] MED LIST: Fentanyl 100 MCG/2 ML VIAL ONE; Sodium Bicarbonate 2.5 MEQ/5 ML VIAL ONE
[2021-01-10 10:58] VITALS: TEMP 97.9
[2021-01-10] MEDS ORDERED: Acetaminophen 500 MG TAB PO SCH (11:00)
[2021-01-10] MEDS ORDERED: diphenhydrAMINE 25 MG CAP PO SCH (11:00)
[2021-01-10 14:02] VITALS: BP 130/63
== END 2021-01-10 14:02 | disposition home or self-care (01) ==
LOC: ONC/OP 10:38
PROVIDERS: ATTEND Internal Medicine Hematology & Oncology
PROC: 30233N1 Transfusion of Nonautologous Red Blood Cells into Peripheral Vein, Percutaneous Approach (ICD-10-PCS; principal; 2021-01-10)
DX: D64.9 Anemia, unspecified (principal); D69.6 Thrombocytopenia, unspecified
CPT/HCPCS: 36430; 86850; 86900; 86901; J3010; P9016

== ENCOUNTER 2021-01-24 11:54 | Day surgery (SDC) | payer OTHER ==
[2021-01-24] MEDS ORDERED: Sodium Chloride 0.9% 20 ML ONE (12:14)
[2021-01-24] MEDS ORDERED: Acetaminophen 500 MG TAB PO SCH (12:15)
[2021-01-24] MEDS ORDERED: diphenhydrAMINE 25 MG CAP PO SCH (12:15)
[2021-01-24 15:29] VITALS: BP 119/63; TEMP 97.6
== END 2021-01-24 15:41 | disposition home or self-care (01) ==
LOC: ONC/OP 11:54
PROVIDERS: ATTEND Internal Medicine Hematology & Oncology
PROC: 30233N1 Transfusion of Nonautologous Red Blood Cells into Peripheral Vein, Percutaneous Approach (ICD-10-PCS; principal; 2021-01-24)
DX: D64.9 Anemia, unspecified (principal); D69.6 Thrombocytopenia, unspecified
CPT/HCPCS: 36430; 86850; 86900; 86901; P9016

== ENCOUNTER 2021-03-24 13:28 | Outpatient (CLI) | payer OTHER | END 2021-03-24 13:29 | disposition home or self-care (01) | LOC: ULT 13:28 | PROVIDERS: ATTEND Internal Medicine Hematology & Oncology | DX: Z51.11 Encounter for antineoplastic chemotherapy (principal); C90.00 Multiple myeloma not having achieved remission; I08.3 Combined rheumatic disorders of mitral, aortic and tricuspid valves; Z79.899 Other long term (current) drug therapy | CPT/HCPCS: 93306 ==

== ENCOUNTER 2021-06-16 11:09 | Outpatient (CLI) | payer OTHER ==
[2021-06-16 13:04] LABS: #Eosinphils 0.1 10x3/uL (0.0-0.5); #Monocytes 0.3 10x3/uL (0.0-1.1); #Neutrophils 1.4 10x3/uL (1.5-8.4); %Basophils 0.7 % (0.0-2.0); %Lymphocytes 39.3 % (18.0-47.0); %Monocytes 10.2 % (0.0-10.0); %Neutrophils 47.5 % (40.0-75.0); Hemoglobin 10.4 g/dL (13.5-17.5); Mean Corpuscular HGB CONC 34.8 g/dL (32.0-36.0); Mean Corpuscular Hemoglobin 32.9 pg (27.0-33.0); Mean Corpuscular Volume 94.6 fl (81.2-95.1); Mean Platelet Volume 10.2 fl (7.4-10.4); Platelet Count 115 10x3/uL (150-450); RBC Distribution Width 14.4 % (11.5-14.5); Red Blood Cell (RBC) Count 3.16 10x6/uL (4.32-5.72)
[2021-06-16 13:37] LABS: ALT (SGPT) 18 U/L (8-55); AST (SGOT) 16 U/L (5-34); Albumin 4.1 g/dL (3.4-4.8); Alkaline Phosphatase 44 U/L (40-110); Anion Gap 12 mmol/L (10-20); BUN (Urea Nitrogen) 18 mg/dL (8.4-25.7); Bilirubin, Total 0.4 mg/dL (0.2-1.2); Calc. Creatinine Clearance 0 mL/min (70-130); Calcium 8.9 mg/dL (7.8-10.44); Carbon Dioxide 25 mmol/L (23-31); Chloride 110 mmol/L (98-107); Globulin 1.8 g/dL (2.4-3.5); Glucose 84 mg/dL (80-115); Potassium 4.5 mmol/L (3.5-5.1); Protein, Total 5.9 g/dL (5.8-8.1); Sodium 142 mmol/L (136-145)
[2021-06-16 22:16] LABS: SARS-CoV-2 PCR by NAA Not Detected (NotDetected)
== END 2021-06-16 11:10 | disposition home or self-care (01) ==
LOC: LABBT 11:09
PROVIDERS: ATTEND Internal Medicine Cardiovascular Disease
DX: Z01.812 Encounter for preprocedural laboratory examination (principal); Z20.822 Contact with and (suspected) exposure to COVID-19
CPT/HCPCS: 80053; 85025; U0003; U0005

== ENCOUNTER 2021-08-17 00:42 | Observation (INO) | payer OTHER ==
[2021-08-17 01:46] LABS: Hemoglobin 9.6 g/dL (14.0-18.0); Mean Corpuscular HGB CONC 35.6 g/dL (32.0-36.0); Mean Corpuscular Hemoglobin 34.4 pg (27.0-31.0); Mean Corpuscular Volume 96.6 fL (78.0-98.0); White Blood Cell (WBC) Count 2.8 thou/uL (4.8-10.8)
[2021-08-17 01:53] LABS: ALT (SGPT) 55 U/L (8-55); AST (SGOT) 53 U/L (5-34); Albumin 3.9 g/dL (3.4-4.8); Alkaline Phosphatase 167 U/L (40-110); Anion Gap 13 mmol/L (10-20); BUN (Urea Nitrogen) 15 mg/dL (8.4-25.7); Bilirubin, Total 0.3 mg/dL (0.2-1.2); Calc. Creatinine Clearance 0 mL/min (70-130); Calcium 8.2 mg/dL (7.8-10.44); Carbon Dioxide 19 mmol/L (23-31); Chloride 99 mmol/L (98-107); Globulin 2.1 g/dL (2.4-3.5); Glucose 113 mg/dL (80-115); Potassium 4.1 mmol/L (3.5-5.1); Sodium 127 mmol/L (136-145)
[2021-08-17 02:08] LABS: Band 22 % (5-11); Lymphocytes 6 % (21-51); MDiff Complete? YES; Mean Platelet Volume 7.1 fL (7.4-10.4); Metamyelocyte 1 % (0-0); Monocytes 12 % (0-10); Myelocyte 2 % (0-0); Neutrophil 57 % (42-75); Platelet Count 88 thou/uL (130-400); Platelet Morphology Comment Appears Decreased
[2021-08-17] MEDS ORDERED: Cefepime 2 GM VIAL ONE (02:36)
[2021-08-17] MEDS ORDERED: Vancomycin 1 GM/200 ML BAG ONE (03:36)
[2021-08-17] MEDS ORDERED: Acetaminophen 650 MG Suppository PR PRN (05:49)
[2021-08-17] MEDS ORDERED: Ondansetron ODT 4 MG TAB PO PRN (05:49)
[2021-08-17] MEDS ORDERED: Ondansetron PF 4 MG/2 ML Vial IVP PRN (05:49)
[2021-08-17] MEDS ORDERED: Acetaminophen 325 MG TAB PO PRN (05:49)
[2021-08-17] MEDS: Sodium Chloride 0.9% 1,000 ML IV SCH ×2 (06:28→21:21)
[2021-08-17] MEDS ORDERED: Sodium Chloride 0.9% 1,000 ML IV SCH (06:30)
[2021-08-17 07:25] LABS: Bacteria/HPF None Seen HPF (None Seen); Bilirubin Negative (Negative); Blood, Urine Negative (Negative); Clarity Clear (Clear); Glucose, Urine (Dipstick) Normal (Negative); Ketone, Urine Negative (Negative); Leukocyte Negative Leu/uL (Negative); Nitrite Negative (Negative); Protein, Urine (Dipstick) Negative (Neg-Trace); RBC/HPF 0-3 HPF (0-3); Specific Gravity, Urine 1.006 (1.002-1.036); Squamous Epithelial None Seen HPF (0-3); Urobilinogen Normal mg/dL (Less than 2); WBC/HPF 0-3 HPF (0-3)
[2021-08-17 07:29] LABS: Urine Culture Reflex No No
[2021-08-17] MEDS: valACYclovir 500 MG TAB PO SCH ×2 (08:50→21:21)
[2021-08-17] MEDS: Cefepime 2 GM in Sodium Chloride 0.9% 100 ML IVPB SCH (14:45)
[2021-08-17] MEDS ORDERED: VANCOMYCIN 1.25 GM/250 ML BAG IVPB SCH (16:00)
[2021-08-17] MEDS: VANCOMYCIN 1.25 GM/250 ML BAG 1.25 GM in Premix Bag 1 BAG IVPB SCH (16:53)
[2021-08-17] MEDS ORDERED: Fluconazole 100 MG TAB PO SCH (20:00)
[2021-08-17] MEDS ORDERED: Prochlorperazine Maleate 5 MG TAB PO PRN (20:07)
[2021-08-17] MEDS: Sodium Bicarbonate Tab 325 MG TAB PO SCH (21:21)
[2021-08-18] MEDS: VANCOMYCIN 1.25 GM/250 ML BAG 1.25 GM in Premix Bag 1 BAG IVPB SCH ×2 (03:47→15:11)
[2021-08-18] MEDS: Cefepime 2 GM in Sodium Chloride 0.9% 100 ML IVPB SCH ×2 (03:47→15:11)
[2021-08-18 05:53] LABS: Anion Gap 10 mmol/L (10-20); BUN (Urea Nitrogen) 15 mg/dL (8.4-25.7); Calc. Creatinine Clearance 85 mL/min (70-130); Carbon Dioxide 21 mmol/L (23-31); Chloride 104 mmol/L (98-107); Glucose 104 mg/dL (80-115); Potassium 4.1 mmol/L (3.5-5.1); Sodium 131 mmol/L (136-145)
[2021-08-18 05:58] LABS: Band 8 % (5-11); Hemoglobin 8.7 g/dL (14.0-18.0); Hypochromia SLIGHT = 6-15 cells (100X) (0-5/hpf); Lymphocytes 12 % (21-51); MDiff Complete? YES; Mean Corpuscular HGB CONC 34.8 g/dL (32.0-36.0); Mean Corpuscular Hemoglobin 34.1 pg (27.0-31.0); Mean Platelet Volume 7.5 fL (7.4-10.4); Monocytes 28 % (0-10); Neutrophil 52 % (42-75); Platelet Count 81 thou/uL (130-400); Platelet Morphology Comment Appears Decreased; Red Blood Cell (RBC) Count 2.53 mill/uL (4.70-6.10); White Blood Cell (WBC) Count 2.2 thou/uL (4.8-10.8)
[2021-08-18] MEDS: Sodium Bicarbonate Tab 325 MG TAB PO SCH (07:46)
[2021-08-18] MEDS: valACYclovir 500 MG TAB PO SCH (07:46)
[2021-08-18] MEDS ORDERED: Non-Formulary Item 1 EACH (Valacyclovir Hcl [Valacyclovir] 1,000 MG Tablet) PO SCH (09:00)
[2021-08-18] MEDS ORDERED: Famotidine 20 MG TAB PO SCH (11:00)
[2021-08-18] MEDS: Sodium Chloride 0.9% 1,000 ML IV SCH (11:24)
[2021-08-18 11:48] VITALS: TEMP 97.8
[2021-08-18 13:21] VITALS: BMI 27.2
[2021-08-18 15:34] LABS: Vancomycin, Trough 14.2 ug/mL
[2021-08-18] MEDS ORDERED: Vancomycin 1.5 GRAM/300 ML BAG 1.5 GM in Premix Bag 1 BAG IVPB SCH (16:00)
[2021-08-18 16:51] VITALS: BP 109/68
[2021-08-19] MEDS ORDERED: Famotidine 20 MG TAB PO SCH (09:00)
[2021-08-20] MEDS ORDERED: Prevnar 13-Val Conj/PF 0.5 ML SYRINGE IM ONE (09:00)
== END 2021-08-18 17:30 | disposition home or self-care (01) ==
LOC: ERS 00:42 → MSONC 02:51
PROVIDERS: ADMIT Internal Medicine; ATTEND Internal Medicine
DX: A41.9 Sepsis, unspecified organism (principal); D61.818 Other pancytopenia; E87.1 Hypo-osmolality and hyponatremia; I11.0 Hypertensive heart disease with heart failure; I50.9 Heart failure, unspecified; C90.00 Multiple myeloma not having achieved remission; Z79.899 Other long term (current) drug therapy; Z90.49 Acquired absence of other specified parts of digestive tract; Z94.81 Bone marrow transplant status; Z94.84 Stem cells transplant status; Z20.822 Contact with and (suspected) exposure to COVID-19
CPT/HCPCS: 36415; 71045; 80048; 80053; 80202; 81001; 82306; 83605; 83880; 85025; 87040; 93005; 93010; 96365; 96374; 96375; 96376; G0378; J0692; J2405; J3370; J3490; J7050; Q0162; U0003; U0005